=== PATIENT | female | born 1965 | race Caucasian/White ===

== ENCOUNTER → 2017-02-26 | Day surgery (SDC) | payer OTHER ==
[~2017-02-26] MED LIST: Propofol 200 MG/20 ML SDV IV ONE; Sodium Chloride 0.9% 500 ML IV SCH
--- NOTE | 2017-02-26 14:16 | OR ---
DATE OF OPERATION: 02/26/2017 PREOPERATIVE DIAGNOSIS: SCREENING COLONOSCOPY. POSTOPERATIVE DIAGNOSIS: SCREENING COLONOSCOPY. SURGEON: Morris Pisano MD PROCEDURE: FULL-LENGTH COLONOSCOPY. ANESTHESIA: ACTUARY. COMPLICATIONS: None. SPECIMEN: None. FINDINGS: Normal full length colonoscopy. RECOMMENDATIONS: Follow up colonoscopy every 10 years. INDICATIONS: The patient was in for routine physical. He is at the age due for a screening colonoscopy. DESCRIPTION OF PROCEDURE: The patient was prepped and draped, placed in the left lateral decubitus position. A lubricated Olympus colonoscope was inserted and easily advanced to the cecum. Direct visualization of the ileocecal valve and appendiceal orifice was accomplished. The bowel prep was adequate. Upon withdrawal of the scope, throughout the entire length of the colon, I found no signs of any polyps, mass, ulceration, or bleeding sites. No vascular abnormalities or signs of colitis. There were no significant diverticuli. The rectal vault was unremarkable. Retroflexion of scope in the rectum showed no anal lesions. Air was suctioned, scope removed without complication. WOODY/TROY /[id number]
== END ==
LOC: CC.SDS 12:00
PROVIDERS: ATTEND Family Medicine
DX: Z12.11 Encounter for screening for malignant neoplasm of colon (principal); I10 Essential (primary) hypertension; E78.00 Pure hypercholesterolemia, unspecified; E55.9 Vitamin D deficiency, unspecified; Z88.1 Allergy status to other antibiotic agents; Z79.82 Long term (current) use of aspirin; Z79.899 Other long term (current) drug therapy; Z72.0 Tobacco use
CPT/HCPCS: 45378; J2704; J7040

== ENCOUNTER 2022-11-15 23:11 | Emergency (ER) | payer BC ==
[2022-11-15] MEDS ORDERED: Losartan 25 MG Tab PO STA (23:24)
== END 2022-11-15 23:50 | disposition home or self-care (01) ==
LOC: CC.ED 23:11
DX: I10 Essential (primary) hypertension (principal); Z88.1 Allergy status to other antibiotic agents; Z88.8 Allergy status to other drugs, medicaments and biological substances
CPT/HCPCS: 99283; A9270-GY